=== PATIENT | female | born 1955 | race Caucasian/White ===

== ENCOUNTER 2017-01-09 10:30 | Day surgery (SDC) | payer OTHER ==
[~2017-01-09] VITALS: Ht 175.3 cm; Wt 102.1 kg
[~2017-01-09 10:30] MED LIST: ASCO100089 PO; ASPI-973 PO; ATRV10T PO; CHOL200047 PO; GLIP10TA10 PO; LISI10TA PO; METF500T4 PO; MULT-1018 PO; Sodium Chloride LOK Flush 10 mL Syringe IV PRN; fentaNYL-PF 50 mCg/mL 2 mL Inj IVPUSH PRN
[2017-01-09 11:11] VITALS: BP 147/92; PULSE 75; RESP 14; O2SAT 98
[2017-01-09] MEDS ORDERED: INS7030 SUBQ (11:14)
[2017-01-09] MEDS: 0.9% Sodium Chloride 1,000 ML IV SCH ×2 (12:21→12:40)
[2017-01-09 12:58] VITALS: BP 118/69; PULSE 64; RESP 16; O2SAT 94
[2017-01-09 13:08] VITALS: BP 120/71; PULSE 69; RESP 16; O2SAT 98
[2017-01-09 13:18] VITALS: BP 133/73; PULSE 62; RESP 16; O2SAT 98
--- NOTE | 2017-01-09 23:50 | ENDO ---
[address] [address] ENDOSCOPY PROCEDURE PATIENT: DC GAY : 1955 MR#: [id number] ADMIT: 01/09/2017 JOB ID: [id number] DATE: 01/09/2017 PRIMARY PROVIDER: Lachelle Gates MD PROCEDURE: Colonoscopy with cold snare polypectomy and cold forceps polypectomy. INDICATIONS: A 61-year-old female with a personal history of colon polyps returning for surveillance. EQUIPMENT: PCF H 180 AL. SEDATION: 5 mg Versed and 100 mcg fentanyl. COMPLICATIONS: None identified. BOWEL PREPARATION: Fair, adequate exam. PROCEDURE INFORMATION: After the risks and benefits were explained, written and verbal informed consent was obtained. The patient was brought into the endoscopy suite and placed into the left lateral decubitus position. Sedation was achieved using the above-stated medications with the addition of oxygen via nasal cannula. A digital rectal examination was accomplished and moderate internal, external, nonbleeding, nonthrombosed hemorrhoids were noted. The scope was introduced into the rectum and advanced to the cecum as identified by the appendiceal orifice and the ileocecal valve. The scope was slowly withdrawn to carefully examine the mucosa for any defects or lesions. Multiple direct views were made through the dentate line for exclusion of pathology. The colon was decompressed. The scope removed from the patient who tolerated the procedure well. FINDINGS: There was a small polyp in the proximal transverse colon. It was initially thought to be removed with hot snare. The snare inadvertently came through this polyp before cautery was applied. So, this was cold snare removed with one fragment of remaining polypoid mucosa excised with cold forceps. No other significant pathology identified throughout. ENDOSCOPIC DIAGNOSES: 1. Diminutive transverse colon polyp. 2. Hemorrhoids. RECOMMENDATIONS: 1. Await histopathology. 2. Repeat colonoscopy in five years.
--- NOTE | 2017-01-10 13:01 | PATH ---
SURGICAL PATHOLOGY Attending Physician:Bruno Toussaint CASE STATUS: Signed Out PATIENT NAME: DC GAY PID: [id number] : 1955 DATE COLLECTED:01/09/2017 20:06 SPECIMEN: Colon, Biopsy CLINICAL HISTORY: 1). TRANSVERSE COLON POLYP FINAL DIAGNOSIS: 1.TRANSVERSE COLON POLYP: TUBULAR ADENOMA. ICD10 CODE D12.6 GROSS DESCRIPTION: The specimen is received in one formalin filled container labeled with the patient's name, sublabeled "transverse colon polyp" and consists of a 0.3 x 0.3 x 0.2 CM portion of tissue which is entirely submitted in one cassette. 01/09/2017 DAC MICRO DESCRIPTION: See diagnosis. ICD-9 CODES: CPT CODES: 1: 08213 Electronically Signed Out Kirill Paniagua MD [facility] Pathology [facility] [address] [facility], [place] [address] Technical component performed at [facility], [facility] [address], [place], [address]
== END 2017-01-09 23:59 | disposition home or self-care (01) ==
LOC: END 10:30
PROVIDERS: ATTEND Internal Medicine Gastroenterology
DX: Z12.11 Encounter for screening for malignant neoplasm of colon (principal); D12.3 Benign neoplasm of transverse colon; K64.8 Other hemorrhoids; K64.4 Residual hemorrhoidal skin tags; Z86.010 Personal history of colon polyps; I10 Essential (primary) hypertension; E11.9 Type 2 diabetes mellitus without complications; G47.33 Obstructive sleep apnea (adult) (pediatric); E78.5 Hyperlipidemia, unspecified; G25.81 Restless legs syndrome; F41.9 Anxiety disorder, unspecified; M85.80 Other specified disorders of bone density and structure, unspecified site; M19.90 Unspecified osteoarthritis, unspecified site; Z79.4 Long term (current) use of insulin; Z79.84 Long term (current) use of oral hypoglycemic drugs; Z79.82 Long term (current) use of aspirin
CPT/HCPCS: 45385; 88305; 99153; G0500; J2250; J3010; J7030